=== PATIENT | female | born 1965 | race African-American/Black ===

== ENCOUNTER 2017-09-20 12:33 | Inpatient (IN) | payer SELFPAY ==
[2017-09-20] MEDS ORDERED: methylPREDNISolone Sod Succ/PF 125 MG/2 ML VIAL ONE (12:59)
[2017-09-20] MEDS ORDERED: diphenhydrAMINE 50 MG/ML VIAL ONE (12:59)
[2017-09-20 13:01] LABS: #Eosinphils 0.1 thou/uL (0.0-0.7); #Lymphocytes 1.9 thou/uL (1.20-3.40); #Monocytes 0.4 thou/uL (0.11-0.59); #Neutrophils 2.1 thou/uL (1.40-6.50); %Basophils 0.5 % (0.0-1.0); %Eosinophils 2.7 % (0.0-10.0); %Lymphocytes 41.2 % (21.0-51.0); %Monocytes 9.7 % (0.0-10.0); Hemoglobin 14.4 g/dL (12.0-16.0); Mean Corpuscular HGB CONC 31.5 g/dL (32.0-36.0); Mean Corpuscular Hemoglobin 28.3 pg (27.0-31.0); Mean Corpuscular Volume 89.8 fL (78.0-98.0); Platelet Count 336 thou/uL (130-400); Red Blood Cell (RBC) Count 5.08 mill/uL (4.20-5.40); White Blood Cell (WBC) Count 4.6 thou/uL (4.8-10.8)
[2017-09-20] MEDS ORDERED: ISOVUE-370 76%-LOCM 1 ML ONE (13:08)
[2017-09-20] MEDS ORDERED: Famotidine/PF 20 mg/2ml Vial SLOW IVP ONE (13:15)
[2017-09-20 13:18] LABS: Prothrombin Time 13.4 SEC (12.0-14.7)
[2017-09-20 13:29] LABS: CKMB 1.7 ng/mL (0-6.6); Troponin I Less than 0.010 ng/mL (< 0.028)
[2017-09-20 13:32] LABS: ALT (SGPT) 9 U/L (8-55); AST (SGOT) 22 U/L (5-34); Albumin 4.4 g/dL (3.5-5.0); Alkaline Phosphatase 72 U/L (40-150); Anion Gap 11 mmol/L (10-20); BUN (Urea Nitrogen) 8 mg/dL (7.0-18.7); Bilirubin, Total 0.5 mg/dL (0.2-1.2); CK (CPK) 149 U/L (29-168); Calc. Creatinine Clearance 0 mL/min (70-130); Calcium 9.9 mg/dL (7.8-10.44); Carbon Dioxide 29 mmol/L (22-29); Chloride 102 mmol/L (98-107); Estimated GFR-MDRD 86; Globulin 3.9 g/dL (2.4-3.5); Glucose 112 mg/dL (70-105); Potassium 3.3 mmol/L (3.5-5.1); Protein, Total 8.3 g/dL (6.0-8.3); Sodium 139 mmol/L (136-145)
[2017-09-20] MEDS ORDERED: Labetalol HCl 100 MG/20 ML VIAL ONE (13:36)
--- NOTE | 2017-09-20 13:43 | CT ---
HEAD CT WITHOUT CONTRAST: Date: 09/20/17 COMPARISON: 12/07/16. HISTORY: Left arm and left leg numbness and weakness with dizziness. TECHNIQUE: Serial axial CT imaging at 5 mm intervals from vertex through skull base without contrast. FINDINGS: Imaged paranasal sinuses/mastoid air cells are well aerated. There is no displaced calvarial fracture , intracranial hemorrhage, midline shift, or mass effect. No interval change. IMPRESSION: No acute findings. Results called to Dr. Barbosa at 2248 hours on 09/20/17. CODE CR. POS: [facility]
[2017-09-20 14:04] LABS: Bilirubin Negative (Negative); Blood, Urine Trace (Negative); Glucose, Urine (Dipstick) Negative (Negative); Leukocyte Trace (Negative); Nitrite Negative (Negative); Protein, Urine (Dipstick) Negative (Neg-Trace); Urobilinogen 0.2 mg/dL (0.2-1.0)
[2017-09-20 14:08] LABS: Clarity CLEAR (Clear)
[2017-09-20 14:09] LABS: Specific Gravity, Urine 1.003 (1.002-1.036)
[2017-09-20 14:10] LABS: Bacteria/HPF None Seen HPF (None Seen); Hyaline Casts/LPF NONE SEEN LPF (0-3 Hyaline); RBC/HPF None Seen HPF (0-3); Squamous Epithelial 0-3 HPF (0-3); WBC/HPF None Seen HPF (0-3)
[2017-09-20 14:12] LABS: Amphetamine Not Detected (NotDetected); Barbiturates Screen Not Detected (NotDetected); Benzodiazepine Screen Not Detected (NotDetected); Cocaine Metabolite Screen Not Detected (NotDetected); Medtox Control Line Valid? VALID (VALID); Medtox Reader # READER 4; Methadone Not Detected (NotDetected); Methamphetamine Not Detected (NotDetected); Opiate Screen Not Detected (NotDetected); Oxycodone Screen Not Detected (NotDetected); Phencyclidine (PCP) Not Detected (NotDetected); THC/Cannabinoid Screen Not Detected (NotDetected); Tricyclic Screen Not Detected (NotDetected)
--- NOTE | 2017-09-20 14:53 | CT ---
CTA CAROTID ARTERIES AND INTRACRANIAL CTA: History: Stroke. Left sided weakness. Technique: Contrast enhanced CTA of the aorta, carotid, and intracranial CTA is performed. FINDINGS: The aortic arch is unremarkable. The right brachiocephalic artery is unremarkable. The right and left common carotid arteries are patent. The internal carotid arteries distal to the carotid bifurcation are tortuous with areas of caliber ch shankar, but no evidence of significant stenosis. There is some minimal post tortuosity dilatation in th e more distal aspect of the ICAs bilaterally. I cannot exclude the possibility of fibromuscular dyspl astrid in this patient. The intracranial CTAs are unremarkable. Right and left middle cerebral artery as well as anterior cer ebral arteries are unremarkable. No evidence of clot seen in the ICA or middle cerebral arteries. The vertebral artery and basilar artery are tortuous but patent. Good flow is seen in the right and l eft posterior cerebral arteries. IMPRESSION: Tortuous bilateral internal carotid arteries. Findings were discussed with Dr. Carballo, Emergency Department, at 2:24 p.m. POS: [facility]
[2017-09-20] MEDS ORDERED: niCARdipine 20MG In NaCl 20 MG/200 ML BAG ONE (15:06)
[2017-09-20] MEDS ORDERED: Aspirin 300 MG Suppository ONE (15:12)
[2017-09-20 16:58] LABS: Troponin I Less than 0.010 ng/mL (< 0.028)
[2017-09-20] MEDS ORDERED: Ondansetron ODT 4 MG TAB SL PRN (17:47)
[2017-09-20] MEDS ORDERED: Acetaminophen 325 MG TAB PO PRN ×2 (17:47→17:48)
[2017-09-20] MEDS ORDERED: Ondansetron HCl/PF 4 MG/2 ML Vial IVP PRN (17:47)
[2017-09-20] MEDS ORDERED: hydrALAZINE 20 MG/ML VIAL SLOW IVP PRN (17:48)
[2017-09-20] MEDS ORDERED: Labetalol HCl 100 MG/20 ML VIAL SLOW IVP PRN (17:48)
[2017-09-20] MEDS ORDERED: HYDROcodone/Acetaminophen 5/325 mg Tablet PO PRN (17:48)
[2017-09-20] MEDS ORDERED: Mag-Al 1200 mg/1200 mg/30 ML UDCUP PO PRN (17:48)
[2017-09-20 17:55] VITALS: BMI 25.6
[2017-09-20] MEDS ORDERED: niCARdipine 20MG In NaCl 20 MG/200 ML BAG IVPB SCH (18:00)
[2017-09-20] MEDS ORDERED: Carvedilol 6.25 MG TAB PO SCH (18:00)
[2017-09-20] MEDS: niCARdipine HCl 25 MG in Sodium Chloride 0.9% 250 ML 240 ML IVPB SCH ×2 (18:26→22:13)
[2017-09-20 19:22] LABS: Troponin I Less than 0.010 ng/mL (< 0.028)
[2017-09-20] MEDS: Docusate 100 MG CAP PO SCH (20:13)
[2017-09-20] MEDS: Famotidine 20 MG TAB PO SCH (20:13)
[2017-09-20] MEDS: Lisinopril 10 MG TAB PO SCH (20:13)
--- NOTE | 2017-09-20 22:43 | HP ---
PRIMARY CARE PHYSICIAN: Through Vin Paul M.D. at the [facility]. CHIEF COMPLAINT: Left-sided numbness. HISTORY OF PRESENT ILLNESS: Ms. Her is a pleasant, 51-year-old female that has a history of hypert ension as well as bronchitis. She says that she got up this morning in order to go to the bathroom a round 8:00 a.m. when she says that on the way to the bathroom, her walking was "shaky." She says eliseo t the left side of her body was weak and felt numb, and she says she was walking towards the side. S he also felt dizzy and lightheaded, and the left side of her mouth was numb. She also says that her pinky finger on the left hand was numb as well. She also felt weak in her knees, and she said she kn ew something was going on, so she had to come to the emergency room for evaluation. In the ER, she w as evaluated and was found to have a blood pressure that was 217/122, and another repeat blood pressu re as high as 214/124. She is being admitted for hypertensive urgency. The patient says that she ta kes lisinopril. She is not sure she is supposed to take it once or twice a day, but says she has bee n taking it once a day every day. She had been discharged she says on a medication that starts with the letter M, she cannot remember the name, but she says that she was taken off it because she experi enced hair loss. She does not believe that another medication was put in its place. The patient den ies any chest pain. She denies any palpitations. She does complain of some symptoms, which sound li ke she was having difficulty breathing in the middle of the night, and she says that she has been hav ing "hard breathing or heavy breathing in the last couple of days." She denies having any lower extr emity edema. REVIEW OF SYSTEMS: All systems were reviewed and are negative except for that mentioned in the histo ry of present illness. PAST MEDICAL HISTORY: Significant for hypertension and bronchitis. 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 ALLERGIES: Are to IODINE and FISH CONTAINING PRODUCTS. SOCIAL HISTORY: She is single. She has 3 children. She is a homemaker. She says she cannot keep a ny jobs down due to severe back pain. She is a smoker. She smokes about a half a pack a day since . FAMILY HISTORY: Significant for heart disease, hypertension, and diabetes. MEDICATIONS: Include lisinopril 10 mg daily, aspirin 81 mg a day as well as some sleep and anxiety m edication. PHYSICAL EXAMINATION: GENERAL: She is alert and oriented. She appears to be in no acute distress. She is well developed and well nourished. VITAL SIGNS: Blood pressure was 217/122, heart rate 93, respiratory rate of 20, and she is afebrile. HEENT: Pupils are equal, round, and reactive. Extraocular muscles are intact. Her sclerae are anic teric. Throat: There is no erythema, no exudates. NECK: No adenopathy, no bruits. LUNGS: Her lungs are clear to auscultation. There is no wheezing, no rales. CARDIOVASCULAR: She has a normal S1, S2. I did not appreciate an S3 or S4. No murmurs, clicks or r ubs. ABDOMEN: Obese, it is soft, it is nontender, nondistended. Positive for bowel sounds. There is no rebound, no guarding. EXTREMITIES: There is no clubbing, cyanosis, no edema. NEUROLOGIC: Neurologically, her muscle strength is 5/5 in both her upper and lower extremities and i t is grossly nonfocal. SKIN AND INTEGUMENT: There are no skin changes. No rashes. LABORATORY DATA: Sodium 139, potassium 3.3, chloride is 102, CO2 is 29, BUN of 8, creatinine 0.85, g lucose is 112. INR is 1.0. CBC: White blood cell count 4.6, hemoglobin 14.4, hematocrit is 45.6, p latelet count is 336. Urine drug screen was negative. ASSESSMENT AND PLAN: This is a pleasant, 51-year-old female, who presents with left-sided numbness a nd extremely elevated blood pressure. Her symptoms have actually improved after she was given a Card kay IV in order to lower the blood pressure. I suspect that the symptoms are likely related to hyper tensive urgency. She had a CT scan of the brain in the emergency room, which was negative for any ac yamile bleed or infarct, and CTA did not reveal any brain at risk or ischemia. She will, therefore, be admitted to the ICU, and we will continue her on the Cardene drip, we will titrate this to keep her s ystolic blood pressures in the 150-170 range. Then, from there, we can lower the blood pressure furt her. I have already explained to her that she will likely need more than one blood pressure medicati on for control. We will add a diuretic as had been previously added. I suspect metoprolol may have been the medication that "took her hair out;" therefore, we can use something like amlodipine or carv edilol to see if this will help lower the pressure without significant side effects. We will also ge t a renal ultrasound to check for any gross abnormalities and also add resistive studies to screen fo r renal artery stenosis, and also get an x-ray of her lumbar spine due to her complaints of back pain as well as with a history of smoking.
[2017-09-21 04:16] LABS: Anion Gap 13 mmol/L (10-20); BUN (Urea Nitrogen) 14 mg/dL (7.0-18.7); Calc. Creatinine Clearance 86 mL/min (70-130); Carbon Dioxide 24 mmol/L (22-29); Chloride 105 mmol/L (98-107); Estimated GFR-MDRD 81; Glucose 194 mg/dL (70-105); Potassium 3.8 mmol/L (3.5-5.1); Sodium 138 mmol/L (136-145)
[2017-09-21 04:26] LABS: #Lymphocytes 0.9 thou/uL (1.20-3.40); #Monocytes 0.2 thou/uL (0.11-0.59); #Neutrophils 6.6 thou/uL (1.40-6.50); %Basophils 0.4 % (0.0-1.0); %Eosinophils 0.1 % (0.0-10.0); %Monocytes 2.2 % (0.0-10.0); %Neutrophils 85.3 % (42.0-75.0); Hemoglobin 14.4 g/dL (12.0-16.0); Mean Corpuscular HGB CONC 32.9 g/dL (32.0-36.0); Mean Corpuscular Hemoglobin 29.8 pg (27.0-31.0); Mean Corpuscular Volume 90.5 fL (78.0-98.0); Mean Platelet Volume 8.7 fL (7.4-10.4); Platelet Count 247 thou/uL (130-400); RBC Distribution Width 13.3 % (11.5-14.5); Red Blood Cell (RBC) Count 4.85 mill/uL (4.20-5.40); White Blood Cell (WBC) Count 7.7 thou/uL (4.8-10.8)
[2017-09-21] MEDS ORDERED: Carvedilol 6.25 MG TAB PO SCH (08:00)
[2017-09-21] MEDS: Lisinopril 10 MG TAB PO SCH (08:21)
[2017-09-21] MEDS: Docusate 100 MG CAP PO SCH (08:26)
[2017-09-21] MEDS: Famotidine 20 MG TAB PO SCH (08:27)
--- NOTE | 2017-09-21 08:47 | CON ---
DATE OF CONSULTATION: 09/21/2017 70 minutes time was spent on the consultation, of that time, greater than 50% of the time was spent with the patient and/or on the patient's unit. REASON FOR CONSULTATION: Hypertensive emergency. HISTORY OF PRESENT ILLNESS: Ms. Her is a 51-year-old female who was admitted to the hospital last night with chief complaint of left-sided weakness which started minutes before being transported to the ER. She was found to have a grossly elevated blood pressure with a systolic over 200. She was placed on a nicardipine drip which resulted in improved blood pressure. Her numbness has now gone away. She had CT imaging performed of her head that did not show any pathology. PAST MEDICAL HISTORY: Hypertension. 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 ALLERGIES: IODINE and FISH CONTAINING PRODUCTS. SOCIAL HISTORY: She is single. She has been a smoker since 1996 about half pack per day. Does not consume any illicit drugs. FAMILY MEDICAL HISTORY: Remarkable for hypertension, heart disease, and diabetes. MEDICATIONS PRIOR TO ADMISSION: Lisinopril 10 mg daily, aspirin 81 mg daily. REVIEW OF SYSTEMS: She denies chest pain, fever, chills, nausea, vomiting, hematemesis, melena, hematochezia, hematuria or dysuria. PHYSICAL EXAMINATION: VITAL SIGNS: Temperature 97.9, pulse 56, blood pressure 155/88, O2 sat 96% on room air. GENERAL: She is awake and alert, in no distress. HEENT: Unremarkable. NECK: No adenopathy, no JVD, no bruits. LUNGS: Clear, without wheezing, rhonchi or crackles. CARDIAC: S1, S2 regular, without murmur, rub or gallop. ABDOMEN: Soft, nontender, nondistended. EXTREMITIES: No clubbing, cyanosis, or edema. NEUROLOGIC: Shows no focal motor sensory or coordination deficits. LABORATORY DATA: White blood cell count 7.7, hematocrit 43.9, platelet count 247. Sodium 138, potassium 3.8, chloride 105, CO2 24, BUN 14, creatinine 0.9, glucose 194. ASSESSMENT: Hypertensive emergency, which is improved. She has been weaned off the Cardene drip and I suspect that she can be managed solely with oral medication. PLAN: The patient can be transferred out to a monitored unit. There are no further pulmonary recommendations and I will be available as needed. JAD
[2017-09-21] MEDS ORDERED: Hydrochlorothiazide 25 MG TAB PO SCH (09:00)
[2017-09-21 09:24] VITALS: TEMP 97.8
--- NOTE | 2017-09-21 10:09 | ULT ---
ARTERIAL DOPPLER ULTRASOUND OF THE KIDNEYS: Date: 09-21-17 Comparison: None. History: Hypertensive urgency. Assess for renal artery stenosis. Technique: Multiplanar grayscale sonographic imaging of the kidneys and urinary bladder obtained. The renal vasculature is assessed with color flow and spectral analysis. FINDINGS: The right kidney measures 9.6 cm in craniocaudal dimension and demonstrates no stone, hydronephrosis, or mass. Resistive indices within the arcuate renal arteries measure in the 0.6 range. Peak systolic velocity within the right renal artery is 117 cm/sec. Abdominal aorta demonstrates a peak systolic v elocity of 96 cm/sec. Imaging of the urinary bladder is grossly unremarkable. Left kidney measures 9.1 cm and demonstrates no stone, hydronephrosis or mass lesion. Resistive index of left arcuate arteries is in the 0.7 range. The peak systolic velocity of the left renal artery measures up to 158 cm/sec. Renal artery/aortic ratio is 1.2 on the right and 1.7 cm on the left, within normal limits. IMPRESSION: No evidence for renal artery stenosis on the basis of sonographic velocity criteria. POS: [facility]
[2017-09-21 10:58] VITALS: BP 168/93
--- NOTE | 2017-09-21 11:18 | RAD ---
THREE VIEWS LUMBAR SPINE: Date: 09-21-17 History: Low back pain on standing. Comparison: 04-03-11 FINDINGS: Again, there are five non-rib bearing lumbar type vertebral bodies. Scattered osteophytes are seen in the lumbar spine, more prominent than on the prior exam. The vertebral body heights and intervertebr al disc spaces are within normal limits. The patient is rotated, but no fracture or subluxation is id entified. There are prominent vascular calcification in the abdominal aorta and involving the iliac a rteries. No other interval change. IMPRESSION: 1. Mild degenerative changes in the lumbar spine. No fracture or subluxation is seen. 2. Vascular calcifications in the abdominal aorta and iliac arteries. 3. Punctate increased density foci overlying the pelvis and abdomen which is probably related to ammy sted material within bowel. POS: [facility]
--- NOTE | 2017-09-21 11:49 | PDOC.PN ---
- Subjective Encounter Start Date: 09/21/17 Encounter Start Time: 11:48 Ms. Her was seen in follow-up. She does not have any new complaints. - Objective Resuscitation Status: Resuscitation Status FULL:Full Resuscitation MAR Reviewed: Yes Vital Signs & Weight: Vital Signs (12 hours) Temp Pulse Resp BP BP Pulse Ox 09/21/17 11:22 97.8 F 61 16 09/21/17 10:58 61 168/93 H 09/21/17 08:26 170/95 H 09/21/17 08:21 170/95 H 09/21/17 08:00 97.8 F 82 16 97 09/21/17 04:00 97.9 F 09/21/17 00:00 97.7 F Most Recent Monitor Data Heart Rate from ECG 67 NIBP 150/96 NIBP BP-Mean 109 Respiration from ECG 21 SpO2 96 I&O: 09/20/17 09/21/17 09/22/17 06:59 06:59 06:59 Intake Total 681 890 Output Total 475 Balance 206 890 Result Diagrams: 09/21/17 03:27 09/21/17 03:27 Phys Exam - Physical Examination HEENT: PERRLA Respiratory: no wheezing, no rales, no rhonchi, clear to auscultation bilateral Cardiovascular: RRR, no significant murmur Gastrointestinal: soft, non-tender, positive bowel sounds Musculoskeletal: no edema Dx/Plan (1) HTN (hypertension) Code(s): I10 - ESSENTIAL (PRIMARY) HYPERTENSION Status: Acute (2) Hypertensive urgency Code(s): I16.0 - HYPERTENSIVE URGENCY Status: Acute (3) Tobacco use Code(s): Z72.0 - TOBACCO USE Status: Acute - Plan * Hypertensive Urgency- much improved. She is off the Cardene drip * Tobacco Abuse- discussed smoking cessation * She is stable for discharge home..
--- NOTE | 2017-09-21 22:18 | DIS ---
DATE OF ADMISSION: 09/20/2017 DATE OF DISCHARGE: 09/21/2017 PRIMARY CARE PHYSICIAN: Vin Paul MD DISCHARGE DISPOSITION: Home. PRIMARY DISCHARGE DIAGNOSES: 1. Hypertensive urgency. 2. Tobacco abuse. 3. Obesity. DISCHARGE MEDICATIONS: Lisinopril 20 mg twice a day, hydrochlorothiazide 25 mg daily, carvedilol 6.2 5 mg twice daily, and aspirin 81 mg daily. PROCEDURES DONE DURING ADMISSION: The patient had a CT scan of the brain, in which the patient had n o acute findings. There was no evidence of any intracranial hemorrhage, midline shift, or mass effec t. The patient had a CT angiogram of the neck and there were tortuous bilateral internal carotid art eries, but otherwise negative. The patient also had a renal ultrasound with resistive studies to the renal arteries. This was essentially negative. There was no evidence for renal artery stenosis bas ed on sonographic velocity criteria. CODE STATUS: FULL CODE. ALLERGIES: FISH-CONTAINING PRODUCTS AND IODINE. HOSPITAL COURSE: Ms. Her is a pleasant 51-year-old female, who presented to the emergency room com plaining of numbness on her face as well as her left side. When she was seen in the emergency room, her blood pressure was extremely high in the range of 220/124. It was felt that this was likely due to hypertensive urgency. She was placed in the ICU and placed on a Cardene drip. Her blood pressure was slowly lowered over the course of the next 24 hours. At the time of discharge, her blood pressu re was in a much safer range at 150/96. Her symptoms have improved. She will be placed on lisinopri l, hydrochlorothiazide, and carvedilol for blood pressure management. She was also instructed on dis continuing smoking, as I explained to her that this can lower her blood pressure down as high as 10 p oints on the systolic by itself. I also discussed the other dangers of smoking including lung cancer , heart disease, stroke, etc. She voiced understanding. Her daughters are at the bedside and also rossy jaramillo encouraged her to quit smoking as well. She is clinically stable and will be discharged home to have close followup in the outpatient setting with her primary care physician. Compliance on blood p ressure medications was also stressed as well.
== END 2017-09-21 13:36 | disposition home or self-care (01) | DRG 305 ==
LOC: ERS 12:33 → CCU 17:44 → 2NO 09-21 09:32
PROVIDERS: ADMIT Internal Medicine; ATTEND Internal Medicine
DX: I16.0 Hypertensive urgency (principal); I10 Essential (primary) hypertension; F17.210 Nicotine dependence, cigarettes, uncomplicated; E66.9 Obesity, unspecified; Z68.25 Body mass index [BMI] 25.0-25.9, adult; R53.1 Weakness; M54.9 Dorsalgia, unspecified
CPT/HCPCS: 36415; 36416; 70450; 70496; 70498; 72100; 76700; 76770; 80048; 80053; 80306; 81003; 81015; 82550; 82553; 84484; 85025; 85610; 85730; 93005; 96365; 96366; 96375; 96376; J1200; J2930; J7050; S0028

== ENCOUNTER 2018-11-05 14:22 | Emergency (ER) | payer SELFPAY ==
[2018-11-05] MEDS ORDERED: Methocarbamol 1 GM in Sodium Chloride 0.9% 100 ML IVPB SCH (15:15)
[2018-11-05 15:22] LABS: #Eosinphils 0.2 thou/uL (0.0-0.7); #Lymphocytes 2.1 thou/uL (1.20-3.40); #Monocytes 0.5 thou/uL (0.11-0.59); #Neutrophils 2.4 thou/uL (1.40-6.50); %Basophils 0.7 % (0.0-1.0); %Eosinophils 3.5 % (0.0-10.0); %Lymphocytes 40.1 % (21.0-51.0); %Monocytes 8.8 % (0.0-10.0); %Neutrophils 46.9 % (42.0-75.0); Hemoglobin 14.2 g/dL (12.0-16.0); Mean Corpuscular HGB CONC 33.6 g/dL (32.0-36.0); Mean Corpuscular Hemoglobin 30.6 pg (27.0-31.0); Mean Platelet Volume 7.9 fL (7.4-10.4); Platelet Count 325 thou/uL (130-400); Red Blood Cell (RBC) Count 4.66 mill/uL (4.20-5.40); White Blood Cell (WBC) Count 5.2 thou/uL (4.8-10.8)
--- NOTE | 2018-11-05 15:40 | CT ---
EXAM: CT brain without contrast HISTORY: Head and neck pain after trauma COMPARISON: 09/20/2017 TECHNIQUE: Multiple contiguous axial images were obtained and a CT of the brain without contrast. FINDINGS: The brain is normal in morphology and attenuation without focal lesions or confluent areas of infarction. There is no evidence of hydrocephalus, intracranial hemorrhage, or extra-axial fluid collection. The calvarium and overlying soft tissues are unremarkable. The visualized paranasal sinuses and masto id air cells are well aerated. IMPRESSION: No evidence of acute intracranial abnormality
--- NOTE | 2018-11-05 15:43 | CT ---
EXAM: CT of the cervical spine without contrast HISTORY: Neck pain after trauma COMPARISON: None TECHNIQUE: Multiple contiguous axial images were obtained in a CT of the cervical spine without contr ast. Sagittal and coronal reformats were performed. FINDINGS: The vertebral bodies and intervertebral discs demonstrate normal height and alignment witho ut fracture or subluxation. Mild degenerative changes are present. No prevertebral soft tissue swelling is seen. The posterior facets are well aligned. Normal alignment of the skull base with the cervical spine is seen. The lung apices and cervical soft tissues are unremarkable. IMPRESSION: No evidence of acute osseous abnormality of the cervical spine.
[2018-11-05 15:44] LABS: ALT (SGPT) 13 U/L (8-55); AST (SGOT) 21 U/L (5-34); Albumin 4.4 g/dL (3.5-5.0); Alkaline Phosphatase 54 U/L (40-150); Anion Gap 13 mmol/L (10-20); BUN (Urea Nitrogen) 13 mg/dL (7.0-18.7); Bilirubin, Total 0.3 mg/dL (0.2-1.2); CK (CPK) 167 U/L (29-168); Calc. Creatinine Clearance 0 mL/min (70-130); Calcium 10.5 mg/dL (7.8-10.44); Carbon Dioxide 31 mmol/L (22-29); Chloride 102 mmol/L (98-107); Estimated GFR-MDRD 77; Globulin 3.3 g/dL (2.4-3.5); Glucose 104 mg/dL (70-105); Potassium 3.5 mmol/L (3.5-5.1); Protein, Total 7.7 g/dL (6.0-8.3); Sodium 142 mmol/L (136-145)
[2018-11-05] MEDS ORDERED: Ketorolac Tromethamine 30 MG/ML VIAL ONE (16:24)
[2018-11-05 16:47] LABS: Bilirubin Negative (Negative); Blood, Urine Negative (Negative); Clarity Clear (Clear); Glucose, Urine (Dipstick) Normal (Negative); Leukocyte Negative Leu/uL (Negative); Nitrite Negative (Negative); Protein, Urine (Dipstick) Negative (Neg-Trace); Urobilinogen Normal mg/dL (Less than 2)
== END 2018-11-05 19:22 | disposition home or self-care (01) ==
LOC: ERS 14:22
DX: S09.90XA Unspecified injury of head, initial encounter (principal); M54.2 Cervicalgia; I10 Essential (primary) hypertension; E10.9 Type 1 diabetes mellitus without complications; F41.9 Anxiety disorder, unspecified; F32.9 Major depressive disorder, single episode, unspecified; F17.210 Nicotine dependence, cigarettes, uncomplicated; Z79.899 Other long term (current) drug therapy; Z79.82 Long term (current) use of aspirin; Z79.84 Long term (current) use of oral hypoglycemic drugs; X58.XXXA Exposure to other specified factors, initial encounter
CPT/HCPCS: 36415; 70450; 72125; 80053; 81003; 82550; 84484; 85025; 93005; 96365; 96375; J1885; J2800; J3490

== ENCOUNTER 2019-03-16 17:02 | Emergency (ER) | payer SELFPAY ==
[2019-03-16 18:30] LABS: Bacteria/HPF None Seen HPF (None Seen); Bilirubin Negative (Negative); Blood, Urine Negative (Negative); Clarity Clear (Clear); Glucose, Urine (Dipstick) Normal (Negative); Leukocyte 75 Leu/uL (Negative); Nitrite Negative (Negative); Protein, Urine (Dipstick) Negative (Neg-Trace); RBC/HPF 0-3 HPF (0-3); Squamous Epithelial 0-3 HPF (0-3); WBC/HPF 0-3 HPF (0-3)
--- NOTE | 2019-03-16 19:21 | RAD ---
TWO VIEWS CHEST: 03/16/19 PROVIDED CLINICAL HISTORY: Sore throat and fever. FINDINGS: Comparison 05/08/12. Cardiac and mediastinal silhouette is unchanged in appearance. No focal consolidation, pleural fluid, or pneumothorax apparent. IMPRESSION: No evidence for an acute cardiopulmonary process. POS: [facility]
== END 2019-03-16 19:58 | disposition home or self-care (01) ==
LOC: ERS 17:02
DX: J30.9 Allergic rhinitis, unspecified (principal); B34.9 Viral infection, unspecified; I10 Essential (primary) hypertension; E10.9 Type 1 diabetes mellitus without complications; F17.210 Nicotine dependence, cigarettes, uncomplicated; Z79.899 Other long term (current) drug therapy
CPT/HCPCS: 71046; 81003; 81015

== ENCOUNTER 2019-05-22 21:45 | Emergency (ER) | payer OTHER, SELFPAY ==
[2019-05-22 23:24] LABS: #Basophils 0.1 thou/uL (0.0-0.2); #Eosinphils 0.2 thou/uL (0.0-0.7); #Lymphocytes 2.5 thou/uL (1.20-3.40); #Monocytes 0.4 thou/uL (0.11-0.59); #Neutrophils 2.3 thou/uL (1.40-6.50); %Basophils 1.1 % (0.0-1.0); %Eosinophils 4.3 % (0.0-10.0); %Monocytes 7.3 % (0.0-10.0); %Neutrophils 42.3 % (42.0-75.0); Hemoglobin 13.6 g/dL (12.0-16.0); Mean Corpuscular HGB CONC 34.3 g/dL (32.0-36.0); Mean Corpuscular Hemoglobin 31.2 pg (27.0-31.0); Mean Corpuscular Volume 90.8 fL (78.0-98.0); Mean Platelet Volume 7.6 fL (7.4-10.4); Platelet Count 394 thou/uL (130-400); RBC Distribution Width 13.1 % (11.5-14.5); Red Blood Cell (RBC) Count 4.36 mill/uL (4.20-5.40); White Blood Cell (WBC) Count 5.5 thou/uL (4.8-10.8)
--- NOTE | 2019-05-22 23:28 | RAD ---
Portable frontal chest radiograph: 05/22/2019 COMPARISON: 12/06/2016 HISTORY: Trauma, pain FINDINGS: Lungs are clear. Heart and mediastinal contours appear within normal limits. IMPRESSION: No acute findings.
[2019-05-22 23:46] LABS: ALT (SGPT) 12 U/L (8-55); AST (SGOT) 18 U/L (5-34); Albumin 4.3 g/dL (3.5-5.0); Alkaline Phosphatase 45 U/L (40-110); Anion Gap 9 mmol/L (10-20); BUN (Urea Nitrogen) 8 mg/dL (9.8-20.1); Bilirubin, Total 0.2 mg/dL (0.2-1.2); Calc. Creatinine Clearance 0 mL/min (70-130); Carbon Dioxide 33 mmol/L (22-29); Chloride 101 mmol/L (98-107); Estimated GFR-MDRD 85; Globulin 3.4 g/dL (2.4-3.5); Glucose 100 mg/dL (70-105); Lipase 27 U/L (8-78); Potassium 3.1 mmol/L (3.5-5.1); Protein, Total 7.7 g/dL (6.0-8.3); Sodium 140 mmol/L (136-145)
--- NOTE | 2019-05-23 00:09 | CT ---
CT of thethoracic spine: 05/22/2019 COMPARISON:None available HISTORY:Injury, trauma, pain TECHNIQUE: Serial axial CT imaging at3.75 mm through the thoracic spine with coronal and sagittal ref ormatted imaging. Findings:No acute fracture or dislocation is seen within the thoracic spine. The imaged lung parenchy ma appears grossly unremarkable. Thoracic vertebral body height and alignment appears within normal limits. There is mild mid thoracic spine disc space narrowing and anterior osteophyte formation. Impression:No acute osseous abnormality within the thoracic spine.
[2019-05-23] MEDS ORDERED: Ibuprofen 200 MG TAB ONE (00:16)
--- NOTE | 2019-05-23 00:16 | CT ---
CT of thecervical spine: 05/23/2019 COMPARISON:11/05/2018 HISTORY:Injury, trauma, pain TECHNIQUE: Serial axial CT imaging at2.5 mm from theskull base through lung apices without contrast. Coronal and sagittal reformatted imaging obtained Findings:The C1 ring appears intact. The occipital condyles, the dens, and the C1-2 articulation appe ars within normal limits. The imaged lung apices appear within normal limits. The atlantoaxial interspace demonstrates moderate degenerative change. The craniocervical junction an d cervicothoracic junction appear intact. There is no anterolisthesis or retrolisthesis seen within the cervical spine. No acute fracture or evidence of dislocation is seen within the cervical spine. There is increased soft tissue density in the posterior oropharyngeal region, right greater than left , best seen at the axial level of the epiglottis which could be on the basis of a mucosal-based lesion. Recommend neck CT with IV contrast for further assessment. There is a suggestion of mildly pr ominent bilateral level 2 and level 5 nodes. Impression:No acute fracture or dislocation is seen within the cervical spine. There is abnormal soft tissue density within the posterior oropharynx for which CT examination with IV contrast is advised. This could be related to malignancy. Tortuous arterial structures are a possibility as well. Dr. Pedersen made aware at 12:10 AM 05/23/2019
[2019-05-23] MEDS ORDERED: Potassium Chloride 20 MEQ TAB ONE (01:47)
== END 2019-05-23 02:01 | disposition home or self-care (01) ==
LOC: ERS 21:45
DX: S19.9XXA Unspecified injury of neck, initial encounter (principal); J39.2 Other diseases of pharynx; I10 Essential (primary) hypertension; E10.9 Type 1 diabetes mellitus without complications; M19.90 Unspecified osteoarthritis, unspecified site; F41.9 Anxiety disorder, unspecified; F32.9 Major depressive disorder, single episode, unspecified; F17.210 Nicotine dependence, cigarettes, uncomplicated; W20.8XXA Other cause of strike by thrown, projected or falling object, initial encounter
CPT/HCPCS: 36415; 71045; 72125; 72128; 80053; 83690; 84484; 85025; 93005; 94640; J7620

== ENCOUNTER 2019-08-08 11:41 | Outpatient (CLI) | payer OTHER ==
[~2019-08-08 11:41] MED LIST: Iopamidol 370 76% 100 ML VIAL ONE
--- NOTE | 2019-08-08 15:55 | CT ---
CT OF THE NECK 08/08/19 COMPARISON: None available. HISTORY: Left sided knot on throat. TECHNIQUE: Axial CT imaging at 2.5 mm intervals from the skull base through the lung apices with intravenous con trast. Coronal and sagittal reformatted imaging obtained. FINDINGS: The visualized lung apices are unremarkable. The imaged paranasal sinuses and mastoid air cells are grossly unremarkable. The retroantral fat and the parapharyngeal fat appears clear bilaterally. The parotid glands and the submandibular glands appear unremarkable bilaterally as well. Region of the tonsillar pillars, epiglottis and pre-epiglottic fat, hyoid bone, thyroid cartilage, cr icoid cartilage, and thyroid gland appear grossly unremarkable. A mildly prominent level II lymph node is noted at the axial level of the ankle of the mandible on th e right measuring 7-8 mm in short axis dimension. No enlarged lymph nodes are noted within the neck. There is a medialized retropharyngeal right internal carotid artery. Vascular structures demonstrate no acute findings. Review of the osseous structures demonstrates moderate degenerative change at the atlantoaxial inters pace. No worrisome lytic or blastic bone lesion. IMPRESSION: No mass lesion or lymphadenopathy. No palpable abnormality is marked on this examination. POS: [facility]
== END 2019-08-08 11:42 | disposition home or self-care (01) ==
LOC: CT 11:41
PROVIDERS: ATTEND Family Medicine
DX: R93.89 Abnormal findings on diagnostic imaging of other specified body structures (principal)
CPT/HCPCS: 70491; Q9967

== ENCOUNTER 2020-08-13 10:52 | Outpatient (CLI) | payer MEDICAID | END 2020-08-13 10:53 | disposition home or self-care (01) | LOC: BICMAMMO 10:52 | PROVIDERS: ATTEND Family Medicine | DX: Z12.31 Encounter for screening mammogram for malignant neoplasm of breast (principal) | CPT/HCPCS: 77067 ==

== ENCOUNTER 2023-11-15 12:38 | Outpatient (CLI) | payer OTHER | END 2023-11-15 12:39 | disposition home or self-care (01) | LOC: BICMAMMO 12:38 | PROVIDERS: ATTEND Family Medicine | DX: Z12.31 Encounter for screening mammogram for malignant neoplasm of breast (principal) | CPT/HCPCS: 77063; 77067 ==

== ENCOUNTER 2023-12-21 09:23 | Outpatient (CLI) | payer OTHER | END 2023-12-21 09:24 | disposition home or self-care (01) | LOC: RAD 09:23 | PROVIDERS: ATTEND Internal Medicine | DX: R06.00 Dyspnea, unspecified (principal) | CPT/HCPCS: 71046 ==

== ENCOUNTER 2025-02-13 11:36 | Outpatient (CLI) | payer OTHER, MEDICAID | END 2025-02-13 11:37 | disposition home or self-care (01) | LOC: BICMAMMO 11:36 | PROVIDERS: ATTEND Family Medicine | DX: Z12.31 Encounter for screening mammogram for malignant neoplasm of breast (principal); N64.89 Other specified disorders of breast | CPT/HCPCS: 77063; 77067 ==